=== PATIENT | male | born 1955 | race Caucasian/White ===

== ENCOUNTER 2018-10-25 19:13 | Observation (INO) | payer MEDICARE, BC ==
[2018-10-25 19:50] LABS: ABS Basophils 0.1 10^3/ul (0-0.2); ABS Eosinophils 0.4 10^3/ul (0-0.6); ABS Lymphocytes 2.2 10^3/ul (1.0-4.8); ABS Neutrophils 4.9 10^3/ul (1.5-7.7); Eosinophil % 4.2 %; Hematocrit 43 % (42-52); Hemoglobin 14.8 g/dL (14.0-18.0); Lymphocyte % 25.8 %; Mean Corpuscular HGB Conc 35 g/dL (31-36); Mean Corpuscular Hemoglobin 30 pg (27-31); Mean Corpuscular Volume 87 fL (80-94); Mean Platelet Volume 7.7 fL (7.4-10.4); Nucleated Red Blood Cells % 0.1; Platelet Count 202 10^3/uL (150-450); Red Blood Count 4.95 10^6 /uL (4.18-5.48); Red Cell Distribution Width 14 % (10-15); White Blood Count 8.5 10^3/uL (3.5-10.8)
[2018-10-25 19:57] LABS: INR 0.97 (0.82-1.09)
[2018-10-25 20:11] LABS: Albumin 4.4 g/dL (3.2-5.2); Albumin/Globulin Ratio 1.5 (1-3); BUN/Creatinine Ratio 15.9 (8-20); Calcium 9.9 mg/dL (8.6-10.3); EGFR African American 65.9 (>60); EGFR Non-African American 54.4 (>60); Globulin 2.9 g/dL (2-4); Potassium 4.1 mmol/L (3.5-5.0); Total Bilirubin 0.5 mg/dL (0.2-1.0); Total Protein 7.3 g/dL (6.4-8.9)
--- NOTE | 2018-10-25 21:13 | ED ---
HPI Chest Pain - HPI Summary HPI Summary: A 63 y/o male presents to [facility] with a chief complaint of intermittent chest pain since 09:00 this morning. He denies any N/V. At triage he rated his pain as a 2/10 in severity. He also reports SOB and leg pain. He says that every now and then his CP would pop up again, and now he reports a dull burn. He states that sometimes his CP can radiate to his throat. He says that he has had several stents and triple bypass. His last stent was done here in [address] 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 - History of Current Complaint Chief Complaint: EDChestPainROMI Time Seen by Provider: 10/25/18 20:10 Hx Obtained From: Patient Onset/Duration: Started Hours Ago, Still Present Timing: Constant Initial Severity: Mild Current Severity: Mild Pain Intensity: 2 Pain Scale Used: 0-10 Numeric Chest Pain Location: Diffuse Chest Pain Radiates: Yes Chest Pain Radiates To:: Other - throat Character: Burning, Dull/Aching Aggravating Factor(s): Nothing Alleviating Factor(s): Nothing Associated Signs and Symptoms: Positive: Shortness of Breath. Negative: Fever - Additional Pertinent History Primary Care Physician: SUGEY - Allergy/Home Medications Allergies/Adverse Reactions: Allergies Allergy/AdvReac Type Severity Reaction Status Date / Time atorvastatin [From Lipitor] Allergy Unknown Verified 10/25/18 19:24 Reaction Details fenofibrate [From Tricor] Allergy Unknown Verified 10/25/18 19:24 Reaction Details niacin Allergy Unknown Verified 10/25/18 19:24 Reaction Details PMH/Surg Hx/FS Hx/Imm Hx Endocrine/Hematology History: Denies: Hx Diabetes, Hx Thyroid Disease Cardiovascular History: Reports: Hx Angina, Hx Coronary Artery Disease, Hx Hypertension, Hx Myocardial Infarction, Other Cardiovascular Problems/Disorders - tripple bypass Denies: Hx Congestive Heart Failure, Hx Pacemaker/ICD Respiratory History: Reports: Hx Asthma, Hx Seasonal Allergies, Hx Sleep Apnea, Other Respiratory Problems/Disorders - "mild emphysema" Denies: Hx Chronic Obstructive Pulmonary Disease (COPD) GI History: Denies: Hx Ulcer History: Denies: Hx Renal Disease Musculoskeletal History: Reports: Hx Arthritis, Hx Back Problems, Hx Tendonitis - SHOULDERS, ELBOWS, HAD HAD SURGERY, Other Musculoskeletal History - Chronic Pain Syndrome Sensory History: Reports: Hx Contacts or Glasses - READING Denies: Hx Hearing Aid Opthamlomology History: Reports: Hx Contacts or Glasses - READING Psychiatric History: Denies: Hx Panic Disorder - Surgical History Surgery Procedure, Year, and Place: Status Post Coronary Artery Bypass Graft 2004; Bilateral Shoulder Surgery; Left Rotator Cuff Repair; Abdominal Hernia Repair; Right Knee MENISCUS Surgery; Lt WRIST& HAND - CARPAL TUNNEL & FINGER LOCKING, Left Elbow, TRIPLE BYPASS WITH 6 STENTS-2015. ANGIOPLASTY BILATERAL LEGS Hx Anesthesia Reactions: No Infectious Disease History: No Infectious Disease History: Denies: Hx Hepatitis, Hx Human Immunodeficiency Virus (HIV), History Other Infectious Disease, Traveled Outside the [place] in Last 30 Days - Family History Known Family History: Positive: Unknown - Social History Alcohol Use: Rare Substance Use Type: Reports: None Smoking Status (MU): Former Smoker Type: Cigarettes Have You Smoked in the Last Year: No Review of Systems Negative: Fever Positive: Chest Pain All Other Systems Reviewed And Are Negative: Yes Physical Exam - Summary Physical Exam Summary: Appearance: The patient is well-nourished in no acute distress and in no acute pain. Skin: The skin is warm and dry and skin color reflects adequate perfusion. HEENT: The head is normocephalic and atraumatic. The pupils are equal and reactive. The conjunctivae are clear and without drainage. Nares are patent and without drainage. Mouth reveals moist mucous membranes and the throat is without erythema and exudate. The external ears are intact. The ear canals are patent and without drainage. The tympanic membranes are intact. Neck: The neck is supple with full range of motion and non-tender. There are no carotid bruits. There is no neck vein distension. Respiratory: Chest is non-tender. Lungs are clear to auscultation and breath sounds are symmetrical and equal. Cardiovascular: Heart is regular rate and rhythm. There is no murmur or rub auscultated. There is no peripheral edema and pulses are symmetrical and equal. Abdomen: The abdomen is soft and non-tender. There are normal bowel sounds heard in all four quadrants and there is no organomegaly palpated. Musculoskeletal: There is no back tenderness noted. Extremities are non-tender with full range of motion. There is good capillary refill. There is no peripheral edema or calf tenderness elicited. Neurological: Patient is alert and oriented to person, place and time. The patient has symmetrical motor strength in all four extremities. Cranial nerves are grossly intact. Deep tendon reflexes are symmetrical and equal in all four extremities. Psychiatric: The patient has an appropriate affect and does not exhibit any anxiety or depression. Triage Information Reviewed: Yes Vital Signs On Initial Exam: Initial Vitals Temp Pulse Resp BP Pulse Ox 98.3 F 92 16 142/83 99 10/25/18 19:15 10/25/18 19:15 10/25/18 19:15 10/25/18 19:15 10/25/18 19:15 Vital Signs Reviewed: Yes Diagnostics - Vital Signs Vital Signs Temp Pulse Resp BP Pulse Ox 10/25/18 20:05 90 22 111/88 98 10/25/18 19:15 98.3 F 92 16 142/83 99 - Laboratory Lab Results: Lab Results 10/25/18 10/25/18 10/25/18 Range/Units 19:41 19:41 19:41 WBC 8.5 (3.5-10.8) 10^3/uL RBC 4.95 (4.18-5.48) 10^6 /uL Hgb 14.8 (14.0-18.0) g/dL Hct 43 (42-52) % MCV 87 (80-94) fL MCH 30 (27-31) pg MCHC 35 (31-36) g/dL RDW 14 (10-15) % Plt Count 202 (150-450) 10^3/uL MPV 7.7 (7.4-10.4) fL Neut % (Auto) 57.3 % Lymph % (Auto) 25.8 % Levy % (Auto) 11.3 % Eos % (Auto) 4.2 % Baso % (Auto) 1.4 % Absolute Neuts (auto) 4.9 (1.5-7.7) 10^3/ul Absolute Lymphs (auto) 2.2 (1.0-4.8) 10^3/ul Absolute Monos (auto) 1.0 H (0-0.8) 10^3/ul Absolute Eos (auto) 0.4 (0-0.6) 10^3/ul Absolute Basos (auto) 0.1 (0-0.2) 10^3/ul Absolute Nucleated RBC 0.0 10^3/ul Nucleated RBC % 0.1 INR (Anticoag Therapy) 0.97 (0.82-1.09) Sodium 139 (135-145) mmol/L Potassium 4.1 (3.5-5.0) mmol/L Chloride 106 (101-111) mmol/L Carbon Dioxide 26 (22-32) mmol/L Anion Gap 7 (2-11) mmol/L BUN 21 (6-24) mg/dL Creatinine 1.32 H (0.67-1.17) mg/dL Est GFR ( Amer) 65.9 (>60) Est GFR (Non-Af Amer) 54.4 (>60) BUN/Creatinine Ratio 15.9 (8-20) Glucose 93 (70-100) mg/dL Calcium 9.9 (8.6-10.3) mg/dL Total Bilirubin 0.50 (0.2-1.0) mg/dL AST 30 (13-39) U/L ALT 36 (7-52) U/L Alkaline Phosphatase 62 (34-104) U/L Troponin I 0.00 (<0.04) ng/mL Total Protein 7.3 (6.4-8.9) g/dL Albumin 4.4 (3.2-5.2) g/dL Globulin 2.9 (2-4) g/dL Albumin/Globulin Ratio 1.5 (1-3) Result Diagrams: 10/25/18 19:41 10/25/18 19:41 Lab Statement: Any lab studies that have been ordered have been reviewed, and results considered in the medical decision making process. Chest Pain Course/Dx - Course Course Of Treatment: I'm concerned with Mr. Betancourt's story of chest pain. His initial EKG, chest x-ray and labs are negative however he reports that this is the same pain that he's had several times in the past for which he received cardiac stenting. I spoke with Dr. Morejon about observation in the hospital. - Diagnoses Provider Diagnoses: Chest pain - Provider Notifications Discussed Care Of Patient With: Demetra Morejon Time Discussed With Above Provider: 21:49 Instructed by Provider To: Admit As Inpatient Discharge - Sign-Out/Discharge Documenting (check all that apply): Patient Departure - admit Patient Received Moderate/Deep Sedation with Procedure: No - Discharge Plan Condition: Fair Disposition: ADMITTED TO [facility] Referrals: Orion Serna MD [Primary Care Provider] - - Billing Disposition and Condition Condition: FAIR Disposition: Admitted to [facility] - Attestation Statements Document Initiated by Sofie: Yes Documenting Scribe: Cristobal Hernandez Provider For Whom Sofie is Documenting (Include Credential): Dain Hodges MD Scribelicia Attestation: ICristobal, scribed for Dain Hodges MD on 10/25/18 at 2209. Scribe Documentation Reviewed: Yes Provider Attestation: The documentation as recorded by the Cristobal powers accurately reflects the service I personally performed and the decisions made by me, Dain Hodges MD Status of Scribe Document: Viewed
[2018-10-26] MEDS ORDERED: Albuterol HFA INHALER* 8 gm MDI INH PRN (00:10)
[2018-10-26] MEDS ORDERED: oxyCODONE TAB* 5 MG TAB PO PRN (00:10)
[2018-10-26] MEDS ORDERED: Al Hydrox/Mg Hydrox/Simet LIQ* 30 ML UDC PO PRN (00:14)
[2018-10-26] MEDS ORDERED: NS 0.9% 1000 ML** 1,000 ML IV SCH ×2 (00:15→12:45)
[2018-10-26] MEDS ORDERED: ALPRAZolam TAB* 0.5 MG PO PRN (00:19)
[2018-10-26] MEDS: Zolpidem TAB* 10 MG PO PRN ×2 (01:41→21:19)
--- NOTE | 2018-10-26 03:05 | HP ---
CC: Dr. Serna * HISTORY AND PHYSICAL: DATE OF ADMISSION: 10/26/18 PRIMARY CARE PROVIDER: Dr. Serna. CHIEF COMPLAINT: Chest pain. HISTORY OF PRESENT ILLNESS: Mr. Betancourt is a 63-year-old male who has a history of coronary artery disease and is status post 3-vessel CABG in 2002, followed by history of cardiac stenting several times, who presents to the emergency room with complaints of chest pain. The patient states he was out working in the [employer] at approximately 9:00 a.m. when he began to develop a severe burning and cramp-like pain in his left side of his chest. He had some mild burning within his throat. He states he felt sweaty; however, it was hot out this morning, he was working in long pants. He states he went home, he showered, and he rested and the pain improved, but did not go away completely. The pain seem to wax and wane all day and at approximately 6:00 p.m., the pain was again severe and therefore he presented to the emergency room for evaluation. The patient also notes that he had some aching in his legs this morning. He does state that this discomfort in his chest is similar to what he has experienced in the past. He is due to see Dr. Mosher in approximately 2 weeks for his routine followups. His last stress test was in 2014 and at that time, he had a stenting for the abnormal stress test. PAST MEDICAL HISTORY: 1. Coronary artery disease. 2. Hypertension. 3. Hyperlipidemia. 4. Psoriasis. 5. Asthma. 6. Degenerative disc disease. 7. Anxiety. PAST SURGICAL HISTORY: 1. Umbilical hernia repair. 2. Left rotator cuff surgery. 3. Right knee surgery x3. 4. Left elbow surgery. 5. Right rotator cuff x2. 6. Left carpal tunnel. 7. CABG. MEDICATIONS: 1. Praluent 75 mg subcutaneous q.2 weeks. 2. Albuterol 2 puffs inhaled q.i.d. p.r.n. shortness of breath. 3. Xanax 1 mg p.o. daily p.r.n. anxiety. 4. Nitroglycerin 0.3 mg subcu 5 minutes p.r.n. chest pain. 5. Singulair 10 mg p.o. q.h.s. 6. Metoprolol-XL 12.5 mg p.o. every other day. 7. Lisinopril 10 mg p.o. daily. 8. Plavix 75 mg p.o. daily. 9. Vitamin D3 2000 units p.o. daily. 10. Aspirin 81 mg p.o. daily. 11. OxyContin 10 mg p.o. b.i.d. 12. Ambien 10 mg p.o. q.h.s. p.r.n. insomnia. 13. Incruse Ellipta one puff inhaled daily. 14. Stelara 45 mg subcutaneous q.3 months. 15. Sildenafil 25 mg p.o. daily p.r.n. ED. 16. Zoloft 100 mg p.o. daily. 17. Potassium chloride 20 mEq p.o. q.h.s. 18. Oxycodone IR 5 mg p.o. t.i.d. p.r.n. pain. ALLERGIES: LIPITOR, NIACIN, and FENOFIBRATE. FAMILY HISTORY: Mom at the age of 93, she had lymphoma and breast cancer, dad at the age of 60 of [place], brother of an [place] at the age of 55. The patient has also had several paternal uncles dying of MIs. SOCIAL HISTORY: The patient is a former smoker. He quit in 2002. He smoked 2 to 3 packs per day x30 years. He drinks alcohol on occasion. 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 He is , he has 2 children. His is his healthcare proxy. REVIEW OF SYSTEMS: A complete 11-system review of systems is obtained. Pertinent positives and negatives are as per HPI and otherwise negative. PHYSICAL EXAMINATION GENERAL: The patient is a well-developed middle-aged male, seen sitting up in the stretcher, in no acute distress. VITAL SIGNS: Blood pressure 166/98, pulse 84, respirations 11, temp 98.3, O2 sat 96% on room air. HEENT: Pupils are equal and round. Extraocular muscles are intact. Oropharynx is clear. Oral mucosa is moist. The patient wears upper and lower dentures. NECK: There is no submandibular, cervical, or supraclavicular adenopathy. Thyroid is not enlarged. No thyroid nodules noted. PULMONARY: Lungs are clear to auscultation bilaterally. CARDIAC: Normal S1, S2. Regular rate and rhythm. I do not appreciate any murmurs. ABDOMEN: Bowel sounds are present. Abdomen is soft, nontender, and nondistended. MUSCULOSKELETAL: There is no cyanosis or clubbing of the digits. There is full active range of motion of all 4 extremities. SKIN: Warm and dry. There are no rashes. NEUROLOGIC: Cranial nerves II through XII are grossly intact. Sensation is intact to light touch throughout. Strength is 5/5 and symmetric to both upper and lower extremities bilaterally. PSYCHIATRIC: The patient is alert. He is oriented x3. Affect appears appropriate. DIAGNOSTIC STUDIES/LAB DATA: WBC 8.5, hemoglobin 14.8, hematocrit 43, platelets 202. INR is 0.97. Sodium 139, potassium 4.1, chloride 106, CO2 of 26 , BUN 21, creatinine 1.32, glucose 93, calcium 9.9. Bilirubin 0.5, AST 30, ALT 36, alk phos 62. Troponin 0.0, followed by 0.01. Albumin is 4.4. EKG reveals normal sinus rhythm with possible slight ST depression and T-wave inversions in the anterior leads. This is a slight change from EKG obtained in 2014. Chest x-ray to my interpretation reveals clear lung hackett bilaterally. ASSESSMENT AND PLAN: Mr. Betancourt is a 63-year-old male who has an extensive cardiac history and that he has had bypass surgery in 2002 followed by subsequent cardiac stenting, who presents to the emergency room with complaints of burning and cramp like left-sided chest pain. 1. Chest pain: At this point, given the patient's significant risk factors, the patient will be admitted under observation status to undergo stress testing. He will have 1 more troponin obtained at 0400. Given his pain has been essentially present all day long, I do not think that the pain he is experiencing currently given his atypical nature and that it is significantly burning and his troponin is negative, is representing an acute coronary syndrome. The patient will have an exercise nuclear stress test ordered for in the morning. The patient will continue on Plavix 75 mg p.o. daily, metoprolol- XL and lisinopril as well as aspirin 81 mg daily. 2. Elevated creatinine: The patient's creatinine is mildly elevated above his baseline. However, the last creatinine in our system is from March 2018. I am going to give the patient normal saline at 75 mL per hour and repeat a basic metabolic panel at 0400. 3. Hypertension: BP is moderately elevated at this time, but it is unclear if he has taken his medications as prescribed. We will monitor overnight and tomorrow the medication regimen can be adjusted if necessary. 4. Hyperlipidemia: The patient takes Praluent at home. This will be on hold for his hospitalization. 5. Asthma: Continue p.r.n. albuterol. 6. Anxiety: Continue Zoloft and p.r.n. Xanax. 7. Chronic back pain: Continue OxyContin and p.r.n. oxycodone. 8. DVT prophylaxis: According to the Adult Thrombosis Prophylaxis Risk Factor Assessment Guide, the patient has a total risk factor score of 3, making him high risk. Lovenox 40 mg subcutaneous daily will be utilized starting on the evening of 10/26/18 if he is still here. 9. Code status is full. TIME SPENT: Forty five minutes was spent admitting this patient. [id number]/CPS #: [id number] KEL
[2018-10-26 04:36] LABS: BUN/Creatinine Ratio 21.7 (8-20); Calcium 9.3 mg/dL (8.6-10.3); EGFR African American 84.8 (>60); EGFR Non-African American 70.1 (>60); Potassium 3.8 mmol/L (3.5-5.0)
[2018-10-26 04:39] LABS: Troponin I 0.01 ng/mL (<0.04)
[2018-10-26] MEDS: NFT: Umeclidinium 62.5 MDI(NF) MDI INH SCH (07:34)
[2018-10-26] MEDS ORDERED: Metoprolol Succinate XL TAB* 25 MG PO SCH (09:00)
[2018-10-26] MEDS ORDERED: Aminophylline IV* 25 MG/ML 10 ML VIAL ONE (09:01)
[2018-10-26] MEDS ORDERED: Regadenoson* 0.4 MG/5 ML SYRINGE ONE (09:01)
[2018-10-26] MEDS ORDERED: Nitroglycerin TAB 0.4 MG* 0.4 MG TAB ONE (09:23)
[2018-10-26] MEDS ORDERED: Diazepam TAB(*) 5 MG PO PRN (10:12)
[2018-10-26] MEDS ORDERED: diPHENhydraMINE PO* 25 MG PO PRN (10:12)
[2018-10-26] MEDS ORDERED: Heparin DRIP 25,000 UNITS(*) 25,000 UNITS/500 ML BAG IV SCH (10:30)
[2018-10-26] MEDS: Lisinopril TAB* 10 MG PO SCH (10:58)
[2018-10-26] MEDS: oxyCODONE SR TAB(*) 10 MG TAB.SR PO SCH ×2 (10:58→21:19)
[2018-10-26] MEDS: Sertraline* 100 MG TAB PO SCH (10:59)
[2018-10-26] MEDS: Aspirin EC TAB* 81 MG TAB.EC PO SCH (10:59)
[2018-10-26] MEDS: Clopidogrel TAB* 75 MG PO SCH (10:59)
[2018-10-26] MEDS ORDERED: Heparin VIAL(*) 5000 UNITS/ML VIAL (FIVE THOUSAND) IV SCH (11:00)
[2018-10-26 11:18] LABS: EGFR African American 84.8 (>60); EGFR Non-African American 70.1 (>60); HDL Cholesterol 35.4 mg/dL
[2018-10-26] MEDS ORDERED: Heparin 2 UNITS/ML IVPREMIX* 2,000 UNIT/1,000 ML BAG IV ONE ×2 (11:20→12:06)
[2018-10-26] MEDS ORDERED: Lidocaine 1% INJ* 10 MG/ML 30 ML SDV ONE (11:20)
[2018-10-26] MEDS ORDERED: Iohexol 350 (CONTRAST) 200 ML MDV IV ONE ×2 (11:21→12:18)
[2018-10-26] MEDS ORDERED: nitroGLYCERIN DRIP* 25,000 MCG/250 ML BTL ONE (11:24)
[2018-10-26] MEDS ORDERED: fentaNYL* 50 MCG/ML 2 ML VIAL (100 MCG VIAL) ONE (11:24)
[2018-10-26] MEDS ORDERED: Midazolam* 1 MG/ML 5 ML VIAL (5 MG) ONE (11:24)
[2018-10-26] MEDS ORDERED: VERAPAMIL 2.5 MG/ML 2 ML VIAL ** 5 mg/2 ml ONE (11:24)
[2018-10-26] MEDS ORDERED: Heparin(*) 1000 UNIT/ML 10 ML VIAL CATH LAB IV ONE (11:24)
[2018-10-26 11:53] LABS: ABS Basophils 0.1 10^3/ul (0-0.2); ABS Eosinophils 0.3 10^3/ul (0-0.6); ABS Lymphocytes 1.5 10^3/ul (1.0-4.8); ABS Monocytes 0.8 10^3/ul (0-0.8); ABS Neutrophils 5.4 10^3/ul (1.5-7.7); Eosinophil % 3.9 %; Hematocrit 42 % (42-52); Hemoglobin 14.8 g/dL (14.0-18.0); Lymphocyte % 19.1 %; Mean Corpuscular HGB Conc 35 g/dL (31-36); Mean Corpuscular Hemoglobin 31 pg (27-31); Mean Corpuscular Volume 87 fL (80-94); Mean Platelet Volume 8.4 fL (7.4-10.4); Platelet Count 200 10^3/uL (150-450); Red Blood Count 4.86 10^6 /uL (4.18-5.48); Red Cell Distribution Width 13 % (10-15); White Blood Count 8.1 10^3/uL (3.5-10.8)
[2018-10-26] MEDS ORDERED: Bivalirudin(*) 250 MG VIAL ONE (12:03)
[2018-10-26] MEDS ORDERED: Clopidogrel TAB* 75 MG ONE (12:07)
--- NOTE | 2018-10-26 12:09 | CONS ---
CONSULTATION REPORT: DATE OF CONSULT: 10/26/18 ATTENDING PHYSICIAN: Dr. Cristobal Edwards, Interventional Cardiology.* (DICTATED BY YESSENIA MORENO NP) REASON FOR CONSULT: Abnormal exercise nuclear stress test with complaint of anginal equivalent. PRIMARY TELEVISION CAMERA OPERATOR: Dr. Jesus Mosher. HISTORY OF PRESENT ILLNESS: This is a pleasant 63-year-old gentleman with a notable history of coronary artery disease with prior remote bypass in 2002. Per report, SVG to right coronary, SVG to OM1 and OM2. He also has a history of extensive peripheral arterial disease, followed by Dr. Espitia; hypertension; hyperlipidemia. The patient states he has been in his usual state of health up until about a month ago when he started to notice decreased exercise capacity. He has also been noticing worsening dyspnea on exertion. Apparently, 2 to 3 days ago he started to develop his anginal equivalent which is burning chest pain radiating into his jaw. 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 Later that evening after having sexual intercourse with his , he started to redevelop substernal burning chest pain radiating into his neck and jaw with associated shortness of breath. Episode improved with nitroglycerin therapy. The patient presented to the emergency room yesterday, 10/25/17, due to chest pain with dyspnea on exertion and leg pain. He states that he was given nitroglycerin in the emergency department that resolved the pain. He was admitted to [address] [place] [address]. Cardiac enzymes were cycled and have remained normal. He was risk stratified with an exercise nuclear stress test. I spoke to Dr. Cristobal Edwards who conducted exercise stress ECG portion, who states that the patient had reproduction of anginal equivalent that improved with administration of sublingual nitroglycerin with anterolateral ischemic ECG changes. Preliminary myocardial perfusion imaging was reviewed by Cristobal Edwards and it suggested of inferior ischemia. I personally saw the patient while on the nuclear table in Nuclear Medicine. He is stable at this time and offers no other complaints. He states he is compliant with medications and is planning on having his shoulder operated on in the coming weeks at [facility]. Last echocardiogram, according to our outpatient medical records, was in 2010 via stress echo. Last ischemic evaluation was via cardiac catheterization in 2014 that resulted in drug-eluting stent placement to saphenous vein graft to the left circumflex and drug-eluting stent to LAD. PAST MEDICAL HISTORY: Notable for: 1. Coronary artery disease. 2. Prior [place]. 3. Hyperlipidemia. 4. Hypertension. 5. Peripheral arterial disease. PAST SURGICAL HISTORY: Includes: 1. CABG x3 in 2002 as mentioned above. 2. PTCA, atherectomy to right SFA, right popliteal. Prior PTCA to left anterior tibialis. 3. Hernia repair. 4. Rotator cuff surgery. 5. Prior percutaneous coronary interventions. ALLERGIES: Listed includes NIASPAN, TRICOR, and LIPITOR. The patient denies allergy to contrast dye, shellfish, or red dye. FAMILY HISTORY: Noncontributory. SOCIAL HISTORY: The patient is , lives at home with his . 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 Former tobacco user. He smoked 2 to 3 packs per day for 25 years. Drinks beer on occasion. Denies drug use. He lives a fairly active lifestyle. Hobbies include hunting and camping. REVIEW OF SYSTEMS: All systems have been reviewed and otherwise negative except as above mentioned in the HPI. PHYSICAL EXAM: Temperature 97.5, pulse 79, respirations 15, oxygenation 96% on room air, and blood pressure of 134/93. General: The patient was lying on nuclear bed, getting scanned when seen and examined. He appears in no apparent distress. He was resting comfortably. HEENT: Head is atraumatic, normocephalic. Oral mucosa is moist. Tongue is midline. Neck: Supple. Trachea midline. No JVD. No carotid bruits. Cardiac: Normal S1, S2. Regular rate and rhythm. No murmur, rub, or gallop noted. Lungs: Auscultated posteriorly. No evidence of adventitious breath sounds. Respirations nonlabored. /GI: Abdomen was distended, nontender. Normoactive bowel sounds , soft. No hepatomegaly noted. Peripheral vascular: No nonhealing ulcerations were noted. No clubbing, no cyanosis, no edema. The patient had strong bilateral dorsalis pedis pulses palpated bilaterally and symmetrically. Skin: Intact. No evidence of jaundice, rashes, or ecchymosis appreciated. DIAGNOSTIC STUDIES/LAB DATA: Blood work obtained, 10/25/18: White count 8.5, hemoglobin 14.8, hematocrit 43, platelets 202. INR was 0.97. Chemistry from 10/26/18: Sodium 138, potassium 3.8, chloride 107, carbon dioxide 23, BUN 23, creatinine 1.06. AST and ALT were normal. Troponin negative x3. ECG from 10/26/17 was reviewed. Sinus rhythm, rate 84 with new anterolateral T - wave changes appreciated with first-degree AV block, VT interval 259. Nuclear imaging: Final report is pending. Chest x-ray, 10/25/18: Per radiology report, no acute cardiopulmonary process was identified. ASSESSMENT AND PLAN: 1. Unstable angina. The patient has had no recurrent angina since percutaneous coronary intervention in 2014. He states for the last 3 to 4 weeks he has noticed a decrease in his exercise capacity with dyspnea on exertion and now reoccurrence of his anginal equivalent ( burning chest pain radiating into his jaw). The patient had reproduction of symptoms with ischemic ECG changes noted on exercise stress ECG portion. Preliminary nuclear imaging is suggestive of an inferior ischemia which was reviewed with Dr. Cristobal Edwards. At this time, we recommend continuing aspirin, Plavix, beta-joseph therapy. We will start IV heparin with ACS protocol bolus. Plan is for left heart catheterization. The patient has notable right lower extremity peripheral arterial disease, thus access will likely be right radial. Procedure was reviewed with the patient including risks and benefits not limited to bleeding, infection, vessel damage, risk of contrast induced nephropathy requiring dual-antiplatelet therapy. The patient was agreeable to the procedure. Procedural consent will be obtained by Dr. Cristobal Edwards. We will continue to follow. 2. History of coronary artery disease, on aspirin, Plavix, and beta-joseph therapy. He has a notable history of prior reactions to fenofibrate, atorvastatin, and niacin. We will do a trial of Zetia therapy. He should be evaluated for a PCSK9 inhibitor if intolerant on an outpatient basis. 3. History of hyperlipidemia. Goal LDL less than 70. Recommending updating lipid panel. Continue Praulent therapy. 4. History of hypertension. The patient is currently normotensive. Recommended continuing current medical therapy. 5. Disposition: Pending course. The patient is a full code. PLAN/RECOMMENDATIONS: Left heart catheterization. Consent to be obtained by Dr. Cristobal Edwards. I personally reviewed the above assessment and plan with Dr. Edwards. He has personally seen and examined the patient. YESSENIA MORENO NP I personally interviewed and examinec the patient , reviewing the risks and benefits of proceeding with cardiac catheterization and possible PCI. He understood this and wished to proceed. I agree with the above Assessmenr and plan, with further management pending the results of the catheterization. CC: Dr. Jesus Mosher MD,[facility] [id number]/CPS #: [id number] MTDD
[2018-10-26] MEDS ORDERED: Adenosine* 3 MG/ML VIAL ONE (12:11)
[2018-10-26] MEDS ORDERED: Nitroglycerin TAB 0.4 MG* 0.4 MG TAB SL PRN (12:33)
--- NOTE | 2018-10-26 14:45 | PN ---
Subjective Date of Service: 10/26/18 Interval History: Patient seen and examined, before stress test and again after cardiac cath and stenting. Patient is currently in ICU bed with at bedside. He is complaining of some intermittent substernal chest burning, but denies any SOB, no palpitations, no n/v. 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 Diphenhydramine HCl (Benadryl Po*) 25 mg PO ONCE PRN PRN Reason: call out clerk to Furniture Refinisher Heparin Sodium (Porcine) (Heparin Vial(*)) 0 units IV .PER PROTOCOL [facility] Last Admin: 10/26/18 10:51 Dose: 4,000 units Sodium Chloride (Ns 0.9% 1000 Ml) 1,000 mls @ 100 mls/hr IV PER RATE [facility] Stop: 10/26/18 22:44 Lisinopril (Prinivil Tab*) 10 mg PO DAILY [facility] Last Admin: 10/26/18 10:58 Dose: 10 mg Metoprolol Succinate (Toprol Xl Tab*) 12.5 mg PO EVERY OTHER DAY [facility] Last Admin: 10/26/18 10:58 Dose: 12.5 mg Montelukast Sodium (Singulair Tab*) 10 mg PO BEDTIME [facility] Nitroglycerin (Nitroglycerin Tab 0.4 Mg*) 0.4 mg SL Q5M PRN PRN Reason: ANGINA Oxycodone HCl (Oxycontin(*)) 10 mg PO BID [facility] Last Admin: 10/26/18 10:58 Dose: 10 mg Oxycodone HCl (Roxycodone Tab*) 5 mg PO TID PRN PRN Reason: pain-moderate Last Admin: 10/26/18 01:41 Dose: 5 mg Potassium Chloride (Klor Con Er Tab*) 20 meq PO QPM [facility] Sertraline HCl (Zoloft*) 100 mg PO DAILY [facility] Last Admin: 10/26/18 10:59 Dose: 100 mg Umeclidinium [place] (Incruse Ellipta Mdi (Nf)) 1 inh INH DAILY [facility] Last Admin: 10/26/18 07:34 Dose: Not Given Zolpidem Tartrate (Ambien Tab*) 10 mg PO BEDTIME PRN PRN Reason: SLEEP Last Admin: 10/26/18 01:41 Dose: 10 mg Vital Signs - 8 hr 10/26/18 10/26/18 10/26/18 07:38 08:00 10:58 Temperature 97.5 F Pulse Rate 81 Respiratory 16 18 18 Rate Blood Pressure 147/87 (mmHg) O2 Sat by Pulse 98 Oximetry 10/26/18 10/26/18 10/26/18 11:07 11:47 13:03 Temperature 97.5 F 98.0 F Pulse Rate 88 72 Respiratory 16 10 18 Rate Blood Pressure 123/81 130/83 (mmHg) O2 Sat by Pulse 98 100 Oximetry Oxygen Devices in Use Now: None Appearance: alert, NAD Eyes: No Scleral Icterus, PERRLA Ears/Nose/Mouth/Throat: NL Teeth, Lips, Gums, Mucous Membranes Moist Neck: NL Appearance and Movements; NL JVP, Trachea Midline Respiratory: Symmetrical Chest Expansion and Respiratory Effort, Clear to Auscultation Cardiovascular: NL Sounds; No Murmurs; No JVD, RRR, No Edema Abdominal: NL Sounds; No Tenderness; No Distention Extremities: No Edema, No Clubbing, Cyanosis, - - right radial cath site Skin: No Rash or Ulcers Neurological: Alert and Oriented x 3 Result Diagrams: 10/26/18 10:41 10/26/18 10:41 Additional Lab and Data: Lab Results 10/25/18 10/25/18 10/25/18 Range/Units 19:41 19:41 19:41 WBC 8.5 (3.5-10.8) 10^3/uL RBC 4.95 (4.18-5.48) 10^6 /uL Hgb 14.8 (14.0-18.0) g/dL Hct 43 (42-52) % MCV 87 (80-94) fL MCH 30 (27-31) pg MCHC 35 (31-36) g/dL RDW 14 (10-15) % Plt Count 202 (150-450) 10^3/uL MPV 7.7 (7.4-10.4) fL Neut % (Auto) 57.3 % Lymph % (Auto) 25.8 % [place] % (Auto) 11.3 % Eos % (Auto) 4.2 % Baso % (Auto) 1.4 % Absolute Neuts (auto) 4.9 (1.5-7.7) 10^3/ul Absolute Lymphs (auto) 2.2 (1.0-4.8) 10^3/ul Absolute Monos (auto) 1.0 H (0-0.8) 10^3/ul Absolute Eos (auto) 0.4 (0-0.6) 10^3/ul Absolute Basos (auto) 0.1 (0-0.2) 10^3/ul Absolute Nucleated RBC 0.0 10^3/ul Nucleated RBC % 0.1 INR (Anticoag Therapy) 0.97 (0.82-1.09) Sodium 139 (135-145) mmol/L Potassium 4.1 (3.5-5.0) mmol/L Chloride 106 (101-111) mmol/L Carbon Dioxide 26 (22-32) mmol/L Anion Gap 7 (2-11) mmol/L BUN 21 (6-24) mg/dL Creatinine 1.32 H (0.67-1.17) mg/dL Est GFR ( Amer) 65.9 (>60) Est GFR (Non-Af Amer) 54.4 (>60) BUN/Creatinine Ratio 15.9 (8-20) Glucose 93 (70-100) mg/dL Calcium 9.9 (8.6-10.3) mg/dL Total Bilirubin 0.50 (0.2-1.0) mg/dL AST 30 (13-39) U/L ALT 36 (7-52) U/L Alkaline Phosphatase 62 (34-104) U/L Troponin I 0.00 (<0.04) ng/mL Total Protein 7.3 (6.4-8.9) g/dL Albumin 4.4 (3.2-5.2) g/dL Globulin 2.9 (2-4) g/dL Albumin/Globulin Ratio 1.5 (1-3) Assess/Plan/Problems-Billing Assessment: This is a 63 year old male patient with hx of CAD/CABG, asthma, HTN, HLP that presented to the ED with complaints of left sided chest burning. - Patient Problems (1) ACS (acute coronary syndrome) Code(s): I24.9 - ACUTE ISCHEMIC HEART DISEASE, UNSPECIFIED SNOMED Code(s): 636395922 Comment: - Prior hx of CABG and stenting - Today, failed stress test and was taken to cathode ray tube assembler by Dr. Edwards, received stent to SVG - Continue optimization with asa, plavix and BB (2) Asthma Code(s): J45.909 - UNSPECIFIED ASTHMA, UNCOMPLICATED SNOMED Code(s): 019333943 Comment: - Albuterol PRN (3) DVT prophylaxis Code(s): KUI9495 - SNOMED Code(s): 765685904 Comment: - SCDs (4) HLD (hyperlipidemia) Code(s): E78.5 - HYPERLIPIDEMIA, UNSPECIFIED SNOMED Code(s): 75403293 Comment: - Zetia per cardiology (5) HTN (hypertension) Code(s): I10 - ESSENTIAL (PRIMARY) HYPERTENSION SNOMED Code(s): 04102663 Comment: - Continue BB, stable (6) Full code status Code(s): Z78.9 - OTHER SPECIFIED HEALTH STATUS SNOMED Code(s): 703947766 Status and Disposition: Inpatient/guarded.
[2018-10-26] MEDS ORDERED: Potassium Chlor TAB* 20 MEQ TAB.ER PO SCH (18:00)
[2018-10-26] MEDS ORDERED: Montelukast Sodium TAB* 10 MG PO SCH (21:00)
[2018-10-26] MEDS ORDERED: Enoxaparin(*) 40 MG/0.4 ML SYR SUBCUT SCH (21:00)
[2018-10-27 05:00] LABS: ABS Basophils 0.1 10^3/ul (0-0.2); ABS Eosinophils 0.5 10^3/ul (0-0.6); ABS Monocytes 0.8 10^3/ul (0-0.8); ABS Neutrophils 5.1 10^3/ul (1.5-7.7); Eosinophil % 5.6 %; Hematocrit 41 % (42-52); Hemoglobin 14.2 g/dL (14.0-18.0); Mean Corpuscular HGB Conc 35 g/dL (31-36); Mean Corpuscular Hemoglobin 30 pg (27-31); Mean Corpuscular Volume 87 fL (80-94); Nucleated Red Blood Cells % 0.2; Platelet Count 178 10^3/uL (150-450); Red Blood Count 4.72 10^6 /uL (4.18-5.48); Red Cell Distribution Width 13 % (10-15); White Blood Count 8.5 10^3/uL (3.5-10.8)
[2018-10-27 05:16] LABS: Albumin 3.8 g/dL (3.2-5.2); Albumin/Globulin Ratio 1.3 (1-3); EGFR African American 97.5 (>60); EGFR Non-African American 80.5 (>60); Total Bilirubin 0.8 mg/dL (0.2-1.0); Total Protein 6.8 g/dL (6.4-8.9)
[2018-10-27] MEDS: NFT: Umeclidinium 62.5 MDI(NF) MDI INH SCH (08:12)
[2018-10-27] MEDS: oxyCODONE SR TAB(*) 10 MG TAB.SR PO SCH (08:14)
[2018-10-27] MEDS: Lisinopril TAB* 10 MG PO SCH (08:14)
[2018-10-27] MEDS: Sertraline* 100 MG TAB PO SCH (08:14)
[2018-10-27] MEDS: Clopidogrel TAB* 75 MG PO SCH (08:14)
[2018-10-27] MEDS: Aspirin EC TAB* 81 MG TAB.EC PO SCH (08:14)
--- NOTE | 2018-10-27 10:13 | CATH ---
CC: Orion Serna MD; Dr. Jesus Mosher CARDIAC CATHETERIZATION INTERVENTIONAL REPORT: DATE OF PROCEDURE: 10/26/2018 INDICATION FOR THE PROCEDURE: The patient with accelerated angina pectoris, suggesting unstable angina occurring with minimal exertion with a history of coronary artery disease, status post vein graft bypass to obtuse marginal branch skipping to the left-sided posterior descending artery and vein graft to acute marginal branch with prior stenting in 2014 of the distal vein graft to the obtuse marginal branch skipping to the left-sided PDA and stenting of the mid left anterior descending artery, now with abnormal exercise nuclear stress test suggesting intermediate risk with nuclear images reported as normal; however, on careful review suggesting inferior wall ischemia. PROCEDURES: Coronary arteriography, vein graft arteriography to the acute marginal branch, vein graft arteriography to the obtuse marginal branch skipping to the left-sided posterior descending artery, primary stenting of the vein graft to the obtuse marginal branch and posterior descending artery utilizing a 4.0 x 16 mm long Synergy drug-eluting stent dilated to high pressures to obtain 4.2 mm. The patient was interviewed and examined on the floor of the hospital, where the risks and benefits were explained. He understood and wished to proceed. APPROACH UTILIZED: The right radial artery was assessed and found to be of appropriate size for an approach and as such, this was the technique utilized. PRECARDIAC CATHETERIZATION LABORATORY RESULTS: Hemoglobin and hematocrit of 14.8 and 43, platelet count of 202,000. BUN and creatinine of 23 and 1.06. Sodium 138, potassium 3.8, chloride 107, bicarb 23. INR 0.97. MEDICATIONS GIVEN DURING THE PROCEDURE: Included a radial artery cocktail without the heparin as the patient was already on an established heparin drip, which was recently started with bolus. The radial artery cocktail included 300 mcg of nitroglycerin, 3 mg verapamil; 1% lidocaine locally was utilized. Angiomax bolus and an Angiomax drip were utilized for a subtherapeutic ACT. Fentanyl and Versed were administered as well as additional Plavix 150 mg. Intracoronary adenosine was given in a preventative fashion for stenting of vein graft. EQUIPMENT UTILIZED: 1. Right radial artery sheath is a 6-Montenegrin glide slender. 2. Diagnostic coronary catheter was a TIG4 5-Montenegrin curve. There was also a 5 - Montenegrin multipurpose 1 catheter, which was utilized. The guide catheter utilized was a 6-Montenegrin AL1 with side holes catheter. The guidewire utilized was both a 190 length All Star and a 300 length All Star. Of note, an Emerge over the wire 1.5 mm x 12 mm long balloon was utilized as guidewire support in order to cross the lesion. 3. The stent utilized was a 4.0 x 16 mm long Synergy drug-eluting stent dilated to high pressures. 4. The diagnostic guidewires utilized included both a 260-length Jo curved guidewire and a Wholey wire guidewire. 5. The closure device utilized was a regular-sized Vasc Band by [employer]. DESCRIPTION OF PROCEDURE: The patient was brought to the warehouse laborer, where a formal time-out was performed. He was prepped and draped in the sterile fashion and under ultrasound guidance, the right radial artery was cannulated and a sheath was placed. Diagnostic coronary arteriography was performed, followed by the decision made to intervene in the vein graft to the obtuse marginal branch skipping to the posterior descending artery. The patient's ACT was checked and found to be subtherapeutic, and as such, an Angiomax bolus and Angiomax drip was started. With the help of the [id number] balloon catheter , the interventional guidewire across the lesion was placed in the distal circumflex artery. Following this, primary stenting was performed utilizing the 4.0 x 16 mm long Synergy drug-eluting stent dilated to high pressure on deployment. Of note, adenosine was given both before and after intra vein graft to prevent slow flow. The result was assessed in multiple views and the wire was removed as well as the sheath, and hemostasis was also obtained with a Vasc Band. The radiation exposure included 17.5 minutes of fluoro time. The air kerma radiation was 3014 mGy. The DAP radiation was 19,145 microgray per m2. The total contrast used was 175 cc of Omnipaque dye. RESULTS: CORONARY ARTERIOGRAPHY: A. Left coronary artery: 1. Left main - widely patent. 2. Left anterior descending artery - the left anterior descending artery had mild luminal irregularities throughout the proximal and midportion. The prior stented area appeared to have minimal in-stent restenosis essentially without any significant lesion. The distal LAD toward the apical region had mild narrowing of 35% noted; it did wrap onto the inferior surface of the heart. A second diagonal branch had a proximal lesion of 55% to 60%. 3. Circumflex artery - essentially, a thread-like vessel at best with evidence of severe in-stent restenosis. No significant antegrade flow was seen in any meaningful way with flow minimally to a mid obtuse marginal branch and no further. VEIN GRAFT ARTERIOGRAPHY TO ACUTE MARGINAL BRANCH OF RIGHT CORONARY ARTERY: I- revealed a total occlusion at its proximal portion. VEIN GRAFT ARTERIOGRAPHY TO OBTUSE MARGINAL BRANCH SKIPPING TO LEFT SIDED PDA: - the prior area of stent placement in the distal portion revealed distal in -stent restenosis as well as probable new formation just past the end of the stented area with a critical 90% to 95% hazy lesion noted. Of note, I cannot see any significant flow in an obtuse marginal branch in an antegrade fashion from this vein graft. Of note, there is a high obtuse marginal branch that appears to get retrograde filling, but no antegrade filling. The anastomosis with the posterior descending artery shows [id number] narrowing of 40% to 45% in the proximal portion of the posterior descending artery after attachment , unchanged from prior study. INTERVENTION INTO VEIN GRAFT TO OBTUSE MARGINAL BRANCH SKIPPING TO LEFT-SIDED POSTERIOR DESCENDING ARTERY: Successful reduction of critical 90% to 95% stenosis with primary stenting utilizing a 4.0 x 16 mm long Synergy drug-eluting stent with residual stenosis of less than 5% ASHWINI-3 flow and no dissection seen. OVERALL ASSESSMENT: Significant stenosis seen within the vein graft as described above with successful intervention with drug-eluting stent. At this point in time, aggressive continued dual antiplatelet therapy, cholesterol management as well as other risk factor management will need to be pursued. This will be primarily carried out by the patient's primary cereal supervisor, Dr. Jesus Mosher. The patient will be seen for wound check within the next week to two weeks followed by followup appointment with Dr. Mosher. [id number]/[facility] #: [id number] [facility]
[2018-10-27 13:36] VITALS: BP 160/93
--- NOTE | 2018-10-27 17:50 | DS ---
CC: Dr. Orion Serna; Dr. Cristobal Edwards; Dr. Sabina Herring * DISCHARGE SUMMARY: DATE OF ADMISSION: 10/26/18 DATE OF DISCHARGE: 10/27/18 PRIMARY CARE PROVIDER: Dr. Orion Serna. ATTENDING PHYSICIAN: Dr. Shea Murphy * (dictated by Rebeca Hernandez NP). PRIMARY DIAGNOSES: 1. Acute coronary syndrome, status post drug-eluting stent placement. 2. Acute kidney injury. SECONDARY DIAGNOSES: 1. Asthma. 2. Hyperlipidemia. 3. Hypertension. STUDIES WHILE IN THE HOSPITAL: 1. EKG on 10/25/18 shows normal sinus rhythm with a rate of 88, QTc 605, inverted T-waves in V1 through V3. 2. Chest x-ray on 10/25/18 reads as: No acute cardiopulmonary disease. 3. Nuclear cardiac stress test on 10/26/18 reads as: Septal dyskinesia. No definite fixed or reversible perfusion defect. Assessment is low risk. 4. EKG on 10/26/18 shows normal sinus rhythm with a rate of 84, QTc 499, first - degree AV block, inverted T-waves in V1 through V3. 5. EKG on 10/26/18 shows normal sinus rhythm with a rate of 71, QTc 454, first - degree AV block, inverted T-waves in V1 through V3. 6. EKG on 10/27/18 shows normal sinus rhythm with a rate of 78, QTc 494, first - degree AV block, inverted T-waves in V1. PROCEDURES WHILE IN THE HOSPITAL: Cardiac catheterization on 10/26/[address] Edwards. HISTORY OF PRESENT ILLNESS AND HOSPITAL COURSE: Mr. Betancourt is a 63-year-old male with past medical history of coronary artery disease, status post CABG; hypertension, and hyperlipidemia, who presented to the emergency room on with complaints of chest pain. Please see the history and physical by Dr. Morejon for a complete summary of the events leading up to this hospitalization. In short, the patient was outside working when he began to develop a burning and cramping pain in the left side of his chest. The pain improved with rest, though did not resolve completely and was present throughout the day prompting him to ultimately present to the emergency room. In the emergency room, he had normal vitals. Lab work was unremarkable except for a mildly elevated creatinine. Troponin was 0.00. Because of the patient's cardiac history and his concerning chest pain, he was admitted by the hospitalist service. The patient underwent a stress test on 10/26/18 with results noted above. He was seen by Denisha Cameron NP, from Cardiology on 10/26/18 and at that point, there was concern for inferior ischemia on the preliminary nuclear stress test imaging. The plan was made for the patient to undergo a cardiac catheterization. The patient was prepped for the procedure and underwent a cardiac catheterization with Dr. Edwards on 10/26/18. At that point, the patient was noted to have a critical 90% to 95% lesion in an acute marginal branch skipping to the posterior descending artery in an area of previous stenting. A drug-eluting stent was placed and the patient was sent to ICU for recovery. The patient had an uneventful night and recovered well from the procedure. There were no complications related to the catheterization. As of this morning, the patient reports feeling well. He has not had any further chest pain or anginal equivalent. He is anxious to return home. His right radial access site is clean, dry and intact. On exam, he has no focal neurological deficits. His heart has a regular rate and rhythm without murmurs , rubs, or gallops. His lungs are clear to auscultation without rhonchi, wheezes, or rubs. Physical assessment is otherwise benign. The patient was seen this morning by Dr. Edwards, who advised that if the patient continued to feel well this afternoon and was able to ambulate in the hallways that he was stable for discharge from his perspective, though the patient will need to remain on dual-antiplatelet therapy and this was addressed to the patient. Mr. Betancourt is stable for discharge today. Vital signs are as follows: Temp 98.6, heart rate 75, respiratory rate 16, oxygen saturation 96% on room air, blood pressure 160/93. DISCHARGE MEDICATIONS: New medications: Zetia . Continued medications: 1. Albuterol MDI 2 puffs q.i.d. p.r.n. shortness of breath. 2. Aspirin 81 mg p.o. daily. 3. Plavix 75 mg p.o. daily. 4. Lisinopril 10 mg p.o. daily. 5. Metoprolol succinate 12.5 mg p.o. every other day. 6. Singulair 10 mg p.o. at bedtime. 7. OxyContin 10 mg p.o. b.i.d. 8. Oxycodone 5 mg p.o. t.i.d. p.r.n. pain. 9. Potassium chloride 20 mEq p.o. daily. 10. Sertraline 100 mg p.o. daily. 11. Incruse Ellipta 62.5 mcg inhalations daily. 12. Ambien 10 mg p.o. at bedtime p.r.n. insomnia. 13. Alirocumab 1 mL subcu every 2 weeks. 14. Alprazolam 1 mg p.o. daily p.r.n. anxiety. 15. Cholecalciferol 2000 units p.o. daily. 16. Nitroglycerin 0.3 mg sublingual q.5 minutes p.r.n. angina. 17. Stelara 45 mg every 3 months. Discontinued medications: 1. Sildenafil. DISCHARGE PLAN: Mr. Betancourt will be discharged home. Active will be as tolerated. Diet will be heart healthy. Medications are noted above. I will note that the patient had been prescribed sildenafil and nitroglycerin previously, though the patient should not take these medications concurrently and so at this point I would recommend that he no longer take the sildenafil unless otherwise instructed by his laundromat manager. He can continue his other usual medications as noted above. He will need to follow up with Cardiology. He has been advised to call the office on Monday morning to set up a wound check appointment with Dr. Herring. It has been stressed to him that the patient not stop or miss any doses of aspirin or Plavix due to the new stent that was placed. He will additionally need to follow up with his PCP in the next 4 to 7 days and will need to follow up with his laundromat manager after seeing Dr. Herring. The patient has been advised to return to the emergency room or nearest hospital for any worsening of symptoms, shortness of breath, lightheadedness, dizziness, chest discomfort, high fevers, chills, night sweats , loss of consciousness or any other worrisome signs or symptoms. DISCHARGE CONDITION: Stable. DISCHARGE DISPOSITION: Home. This is a summarized report of a complex medical history and hospital stay. For further details, please see the entire medical record. TIME SPENT: Approximately 50 minutes was spent on this discharge. REBECA HERNANDEZ, HEAD FILTER TANK TENDER HELPER [id number]/[facility] #: [id number] [facility] SERVICES[facility]am[facility]iel
== END 2018-10-27 13:30 | disposition home or self-care (01) ==
LOC: ED 19:13 → MEDTELE 10-26 00:07 → ICU 10-26 12:33
PROVIDERS: ADMIT Hospitalist; ATTEND Internal Medicine
DX: I24.9 Acute ischemic heart disease, unspecified (principal); N17.9 Acute kidney failure, unspecified; R07.9 Chest pain, unspecified; J45.909 Unspecified asthma, uncomplicated; E78.5 Hyperlipidemia, unspecified; I10 Essential (primary) hypertension; L40.9 Psoriasis, unspecified; I25.119 Atherosclerotic heart disease of native coronary artery with unspecified angina pectoris; I25.2 Old myocardial infarction; F41.9 Anxiety disorder, unspecified; R94.4 Abnormal results of kidney function studies; I45.81 Long QT syndrome; Z79.899 Other long term (current) drug therapy; Z95.1 Presence of aortocoronary bypass graft; Z79.01 Long term (current) use of anticoagulants; Z79.02 Long term (current) use of antithrombotics/antiplatelets; Z88.8 Allergy status to other drugs, medicaments and biological substances; Z87.891 Personal history of nicotine dependence; R06.02 Shortness of breath
CPT/HCPCS: 36415; 71045; 78452; 80048; 80053; 80061; 82565; 84484; 84520; 85025; 85347; 85610; 85730; 87641; 93005; 93017; 93455; 96374; 99156; 99157; 99283; A9270-GY; A9502; C1725; C1769; C1876; C9600-LC; G0378; J0153; J0280; J0583; J1644; J2250; J2785; J3010

== ENCOUNTER 2023-03-25 10:27 | Inpatient (IN) ==
[2023-03-25] MEDS ORDERED: Lactated Ringers 1000 ml BAG 1,000 ML IV ONE ×2 (11:09→11:44)
[2023-03-25] MEDS ORDERED: cefTRIAXone 1 gm/50 mL D5W 1 GM/50 ML BAG IV ONE (11:33)
[2023-03-25] MEDS ORDERED: Azithromycin 500 mg/250 ml NS 500 MG/250 ML BAG IVPB ONE (11:33)
[2023-03-25 11:40] LABS: ABS Basophils 0.2 10^3/uL (0.0-0.1); ABS Eosinophils 0.5 10^3/uL (0.0-0.5); ABS Lymphocytes 1.5 10^3/uL (1.0-4.8); ABS Monocytes 1.4 10^3/uL (0.0-1.1); ABS Neutrophils 16.6 10^3/uL (1.5-7.6); Eosinophil % 2.4 %; Hematocrit 39.6 % (38-53); Hemoglobin 13.5 g/dL (13.2-16.3); Lymphocyte % 7.4 %; Mean Corpuscular Hemoglobin 29.6 pg (27-33); Mean Corpuscular Volume 86.9 fL (80-97); Mean Platelet Volume 7.4 fL (7.5-11.2); Platelet Count 413 10^3/uL (150-450); Red Blood Count 4.56 10^6/uL (4.06-5.63); Red Cell Distribution Width 12.4 % (12-17); White Blood Count 20.2 10^3/uL (3.6-10.2)
[2023-03-25 11:58] LABS: Albumin 3.6 g/dL (3.2-5.2); C Reactive Protein 140.6 mg/L (<8.01); Creatinine, Serum 1.04 mg/dL (0.67-1.17); Globulin 3.6 g/dL (2-4); Potassium 3.8 mmol/L (3.5-5.0); Total Bilirubin 0.7 mg/dL (0.2-1.0); Total Protein 7.2 g/dL (6.4-8.9); eGFR CKD-EPI 77.2 (>60)
[2023-03-25] MEDS ORDERED: Albuterol HFA INHALER 8 gm MDI INH PRN (12:52)
[2023-03-25] MEDS ORDERED: Nitroglycerin 0.3 mg TAB SL PRN (12:52)
[2023-03-25] MEDS ORDERED: guaiFENesin 100 mg/5 ml LIQ unit dose cup PO PRN (12:54)
[2023-03-25] MEDS: Enoxaparin 40 MG/0.4 ML SYR SUBCUT SCH (15:11)
[2023-03-25] MEDS: DOXYcycline 100 MG in NS 0.9% 250 ml 250 ML IVPB SCH (15:13)
[2023-03-25] MEDS: Aspirin EC 81 mg TAB.EC (enteric coated) PO SCH (21:56)
[2023-03-26] MEDS: DOXYcycline 100 MG in NS 0.9% 250 ml 250 ML IVPB SCH ×2 (01:38→13:02)
[2023-03-26 06:59] LABS: ABS Basophils 0.1 10^3/uL (0.0-0.1); ABS Eosinophils 0.8 10^3/uL (0.0-0.5); ABS Lymphocytes 1.8 10^3/uL (1.0-4.8); ABS Monocytes 1.1 10^3/uL (0.0-1.1); ABS Neutrophils 10.2 10^3/uL (1.5-7.6); ABS Nucleated RBC 0.01 10^3/ul; Eosinophil % 5.6 %; Hematocrit 36.6 % (38-53); Hemoglobin 12.4 g/dL (13.2-16.3); Mean Corpuscular Hemoglobin 29.2 pg (27-33); Mean Corpuscular Hgb Conc 33.8 g/dL (31-36); Mean Corpuscular Volume 86.4 fL (80-97); Mean Platelet Volume 7.4 fL (7.5-11.2); Platelet Count 356 10^3/uL (150-450); Red Blood Count 4.24 10^6/uL (4.06-5.63); Red Cell Distribution Width 12.4 % (12-17)
[2023-03-26] MEDS: SPIRIVA Respimat (tiotropium) 2.5 mcg/inh Inhaler INH SCH (08:23)
[2023-03-26] MEDS: NF:ICOSAPENT ETHYL 1 GM CAPSULE (NF) PO SCH (09:47)
[2023-03-26] MEDS: Enoxaparin 40 MG/0.4 ML SYR SUBCUT SCH (13:05)
[2023-03-26] MEDS: cefTRIAXone 1 gm/50 mL D5W 1 GM/50 ML BAG IV SCH (14:55)
[2023-03-26] MEDS: Aspirin EC 81 mg TAB.EC (enteric coated) PO SCH (20:58)
[2023-03-27] MEDS: DOXYcycline 100 MG in NS 0.9% 250 ml 250 ML IVPB SCH ×2 (01:03→12:45)
[2023-03-27 07:23] LABS: ABS Basophils 0.1 10^3/uL (0.0-0.1); ABS Eosinophils 0.8 10^3/uL (0.0-0.5); ABS Lymphocytes 1.7 10^3/uL (1.0-4.8); ABS Monocytes 1.1 10^3/uL (0.0-1.1); ABS Neutrophils 9.8 10^3/uL (1.5-7.6); Eosinophil % 5.9 %; Hematocrit 36.8 % (38-53); Hemoglobin 12.2 g/dL (13.2-16.3); Lymphocyte % 12.9 %; Mean Corpuscular Hemoglobin 28.9 pg (27-33); Mean Corpuscular Hgb Conc 33.2 g/dL (31-36); Mean Corpuscular Volume 86.9 fL (80-97); Mean Platelet Volume 7.1 fL (7.5-11.2); Platelet Count 383 10^3/uL (150-450); Red Blood Count 4.24 10^6/uL (4.06-5.63); Red Cell Distribution Width 12.5 % (12-17); White Blood Count 13.5 10^3/uL (3.6-10.2)
[2023-03-27 07:58] LABS: Calcium 8.8 mg/dL (8.6-10.3); Creatinine, Serum 0.85 mg/dL (0.67-1.17); Magnesium 1.9 mg/dL (1.9-2.7); Phosphorus 3.4 mg/dL (2.5-5.0); Potassium 3.6 mmol/L (3.5-5.0); eGFR CKD-EPI 93.5 (>60)
[2023-03-27] MEDS: SPIRIVA Respimat (tiotropium) 2.5 mcg/inh Inhaler INH SCH (07:59)
[2023-03-27] MEDS: NF:ICOSAPENT ETHYL 1 GM CAPSULE (NF) PO SCH (09:33)
[2023-03-27 10:13] LABS: Urine Appearance Clear; Urine Bilirubin Negative (Negative); Urine Blood Negative (Negative); Urine Color Yellow; Urine Glucose Negative (Negative); Urine Ketones Negative (Negative); Urine Nitrite Negative (Negative); Urine Protein Negative (Negative); Urine Urobilinogen Negative (Negative)
[2023-03-27] MEDS: Enoxaparin 40 MG/0.4 ML SYR SUBCUT SCH (12:52)
[2023-03-27] MEDS: cefTRIAXone 1 gm/50 mL D5W 1 GM/50 ML BAG IV SCH (14:13)
[2023-03-27] MEDS: Aspirin EC 81 mg TAB.EC (enteric coated) PO SCH (21:29)
[2023-03-28] MEDS: DOXYcycline 100 MG in NS 0.9% 250 ml 250 ML IVPB SCH ×2 (01:28→12:55)
[2023-03-28] MEDS: SPIRIVA Respimat (tiotropium) 2.5 mcg/inh Inhaler INH SCH (07:20)
[2023-03-28 07:55] LABS: ABS Basophils 0.1 10^3/uL (0.0-0.1); ABS Lymphocytes 2.2 10^3/uL (1.0-4.8); ABS Monocytes 1.1 10^3/uL (0.0-1.1); Eosinophil % 7.2 %; Hemoglobin 13.4 g/dL (13.2-16.3); Lymphocyte % 16.2 %; Mean Corpuscular Hemoglobin 29.7 pg (27-33); Mean Corpuscular Hgb Conc 34.3 g/dL (31-36); Mean Corpuscular Volume 86.7 fL (80-97); Mean Platelet Volume 7.2 fL (7.5-11.2); Platelet Count 424 10^3/uL (150-450); Red Cell Distribution Width 12.5 % (12-17); White Blood Count 13.3 10^3/uL (3.6-10.2)
[2023-03-28 08:05] LABS: Calcium 9.1 mg/dL (8.6-10.3); Creatinine, Serum 0.89 mg/dL (0.67-1.17); Potassium 4.3 mmol/L (3.5-5.0); eGFR CKD-EPI 92.2 (>60)
[2023-03-28] MEDS: NF:ICOSAPENT ETHYL 1 GM CAPSULE (NF) PO SCH (09:53)
[2023-03-28 10:28] VITALS: BP 139/80
[2023-03-28] MEDS: Enoxaparin 40 MG/0.4 ML SYR SUBCUT SCH (12:54)
[2023-03-28] MEDS ORDERED: cefTRIAXone ADVAN VIAL 1 GM in NS 0.9% 50 ML 50 ML IVPB SCH (14:00)
== END 2023-03-28 15:25 | disposition home or self-care (01) | DRG 871 ==
LOC: ED 10:27 → EDHOLD 12:42 → SUATTDRO 12:42 → MED 13:31
PROVIDERS: ADMIT Hospitalist; ATTEND Student in an Organized Health Care Education/Training Program

== ENCOUNTER 2023-04-05 14:57 | Inpatient (IN) ==
[2023-04-05 16:03] LABS: Hematocrit 39.8 % (38-53); Hemoglobin 13.4 g/dL (13.2-16.3); Mean Corpuscular Hemoglobin 28.9 pg (27-33); Mean Corpuscular Hgb Conc 33.6 g/dL (31-36); Mean Corpuscular Volume 85.9 fL (80-97); Mean Platelet Volume 7.7 fL (7.5-11.2); Platelet Count 473 10^3/uL (150-450); Red Blood Count 4.63 10^6/uL (4.06-5.63); Red Cell Distribution Width 12.9 % (12-17); White Blood Count 20.8 10^3/uL (3.6-10.2)
[2023-04-05 16:10] LABS: INR 1.36 (0.83-1.13)
[2023-04-05 16:25] LABS: Albumin 3.6 g/dL (3.2-5.2); Albumin/Globulin Ratio 0.8 (1-3); C Reactive Protein 178.11 mg/L (<8.01); Calcium 9.5 mg/dL (8.6-10.3); Creatinine, Serum 0.96 mg/dL (0.67-1.17); Globulin 4.3 g/dL (2-4); Potassium 3.4 mmol/L (3.5-5.0); Total Bilirubin 0.6 mg/dL (0.2-1.0); Total Protein 7.9 g/dL (6.4-8.9)
[2023-04-05] MEDS ORDERED: Piperacillin/Tazobac 3.375 BAG 3.375 GM/100 ML BAG IV ONE (16:27)
[2023-04-05] MEDS ORDERED: Vancomycin 1,500 MG in NS 0.9% 250 ml 250 ML IVPB ONE (16:27)
[2023-04-05 16:32] LABS: ABS Basophils 0.5 10^3/uL (0.0-0.1); ABS Eosinophils 0.4 10^3/uL (0.0-0.5); ABS Lymphocytes 1.7 10^3/uL (1.0-4.8); ABS Monocytes 1.7 10^3/uL (0.0-1.1); ABS Neutrophils 16.5 10^3/uL (1.5-7.6); ABS Nucleated RBC 0.01 10^3/ul; Eosinophil % 2.2 %; Lymphocyte % 8.2 %
[2023-04-05] MEDS ORDERED: Potassium EFFERVES 25 meq TAB PO ONE (17:08)
[2023-04-05] MEDS ORDERED: Levalbuterol 1.25MG/0.5ML NEB.SOL INH ONE (17:27)
[2023-04-05 17:43] LABS: Magnesium 2.2 mg/dL (1.9-2.7)
[2023-04-05] MEDS ORDERED: Zosyn per Pharmacy NOTE FOLLOW UP SCH (18:00)
[2023-04-05] MEDS ORDERED: Vancomycin per Pharmacy 1 EA NOTE FOLLOW UP SCH (18:00)
[2023-04-05] MEDS ORDERED: NF:Azelastine 0.1% Nasal (NF) 30 ML BTL BOTH NARES PRN (18:05)
[2023-04-05] MEDS ORDERED: Nitroglycerin 0.3 mg TAB SL PRN (18:05)
[2023-04-05] MEDS ORDERED: Levalbuterol 1.25MG/0.5ML NEB.SOL INH PRN (18:08)
[2023-04-05 18:45] LABS: High Sensitivity Troponin 1 Hr 5 pg/mL (<20)
[2023-04-05] MEDS: NS 0.9% 1000 ml BAG 1,000 ML IV SCH (19:51)
[2023-04-05] MEDS: Enoxaparin 40 MG/0.4 ML SYR SUBCUT SCH (19:51)
[2023-04-05] MEDS: ZOSYN 3.375 GM Q8H per EXTENDED INFUSION IV SCH (20:46)
[2023-04-05] MEDS: Aspirin EC 81 mg TAB.EC (enteric coated) PO SCH (20:51)
[2023-04-05] MEDS: Potassium Chlor 20 meq TAB.ER PO SCH (20:53)
[2023-04-06] MEDS: ZOSYN 3.375 GM Q8H per EXTENDED INFUSION IV SCH ×3 (05:56→20:52)
[2023-04-06] MEDS: Vancomycin 1,250 MG in NS 0.9% 250 ml 250 ML IVPB SCH ×2 (06:35→17:37)
[2023-04-06 07:07] LABS: Hematocrit 35.6 % (38-53); Hemoglobin 11.8 g/dL (13.2-16.3); Mean Corpuscular Hemoglobin 28.8 pg (27-33); Mean Corpuscular Hgb Conc 33.3 g/dL (31-36); Mean Corpuscular Volume 86.6 fL (80-97); Mean Platelet Volume 7.6 fL (7.5-11.2); Platelet Count 377 10^3/uL (150-450); Red Blood Count 4.11 10^6/uL (4.06-5.63); Red Cell Distribution Width 12.7 % (12-17); White Blood Count 13.9 10^3/uL (3.6-10.2)
[2023-04-06] MEDS: Cholecalciferol (VIT D3) 1,000 unit TAB PO SCH (08:29)
[2023-04-06 08:36] LABS: ABS Basophils 0.2 10^3/uL (0.0-0.1); ABS Eosinophils 0.8 10^3/uL (0.0-0.5); ABS Lymphocytes 2.1 10^3/uL (1.0-4.8); ABS Monocytes 1.2 10^3/uL (0.0-1.1); ABS Neutrophils 9.6 10^3/uL (1.5-7.6); ABS Nucleated RBC 0.01 10^3/ul; Eosinophil % 5.8 %; Nucleated Red Blood Cells % 0.1 %/100WBC (0.0-0.8); RBC Morphology Normal (Normal)
[2023-04-06] MEDS: NF:ICOSAPENT ETHYL 1 GM CAPSULE (NF) PO SCH (08:48)
[2023-04-06 09:01] LABS: Calcium 8.6 mg/dL (8.6-10.3); Creatinine, Serum 0.85 mg/dL (0.67-1.17); Magnesium 2.1 mg/dL (1.9-2.7); Potassium 3.7 mmol/L (3.5-5.0); eGFR CKD-EPI 93.5 (>60)
[2023-04-06] MEDS ORDERED: Potassium Chlor 10 meq TAB PO ONE (10:20)
[2023-04-06] MEDS: NS 0.9% 1000 ml BAG 1,000 ML IV SCH (13:42)
[2023-04-06] MEDS: methylPREDNISolone SOD SUCC 40 mg/ml 1 ml VIAL IV SCH (15:07)
[2023-04-06] MEDS: Enoxaparin 40 MG/0.4 ML SYR SUBCUT SCH (17:37)
[2023-04-06] MEDS: Mometasone/Formoter 200/5 MDI INH SCH ×2 (18:06→19:19)
[2023-04-06] MEDS: Aspirin EC 81 mg TAB.EC (enteric coated) PO SCH (20:54)
[2023-04-06] MEDS: Potassium Chlor 20 meq TAB.ER PO SCH (20:54)
[2023-04-07] MEDS: ZOSYN 3.375 GM Q8H per EXTENDED INFUSION IV SCH ×3 (05:03→21:38)
[2023-04-07] MEDS ORDERED: Vancomycin Trough Check NOTE FOLLOW UP ONE (06:00)
[2023-04-07 06:53] LABS: Creatinine, Serum 0.74 mg/dL (0.67-1.17); Vancomycin Trough 7.5 mcg/mL; eGFR CKD-EPI 97.5 (>60)
[2023-04-07] MEDS: Vancomycin 1,250 MG in NS 0.9% 250 ml 250 ML IVPB SCH ×2 (08:24→17:58)
[2023-04-07] MEDS: methylPREDNISolone SOD SUCC 40 mg/ml 1 ml VIAL IV SCH (08:26)
[2023-04-07] MEDS: NF:ICOSAPENT ETHYL 1 GM CAPSULE (NF) PO SCH (08:28)
[2023-04-07] MEDS: Cholecalciferol (VIT D3) 1,000 unit TAB PO SCH (08:28)
[2023-04-07 08:37] LABS: Hematocrit 34.3 % (38-53); Hemoglobin 11.4 g/dL (13.2-16.3); Mean Corpuscular Hemoglobin 28.7 pg (27-33); Mean Corpuscular Hgb Conc 33.3 g/dL (31-36); Mean Corpuscular Volume 86.1 fL (80-97); Platelet Count 396 10^3/uL (150-450); Red Blood Count 3.98 10^6/uL (4.06-5.63); Red Cell Distribution Width 12.5 % (12-17); White Blood Count 13.1 10^3/uL (3.6-10.2)
[2023-04-07] MEDS ORDERED: SPIRIVA Respimat (tiotropium) 2.5 mcg/inh Inhaler INH SCH (09:00)
[2023-04-07] MEDS: Mometasone/Formoter 200/5 MDI INH SCH ×2 (09:12→20:11)
[2023-04-07 10:29] LABS: ABS Basophils 0.1 10^3/uL (0.0-0.1); ABS Eosinophils 0.2 10^3/uL (0.0-0.5); ABS Lymphocytes 1.5 10^3/uL (1.0-4.8); ABS Monocytes 0.8 10^3/uL (0.0-1.1); ABS Neutrophils 10.5 10^3/uL (1.5-7.6); Eosinophil % 1.2 %; Lymphocyte % 11.8 %
[2023-04-07 16:27] LABS: JO-1 Antibody <0.2 U; SS-A/Ro Antibody <0.2 U; SS-B/La Antibody <0.2 U; Sm (Smith) IgG Antibody <0.2 U
[2023-04-07] MEDS: Enoxaparin 40 MG/0.4 ML SYR SUBCUT SCH (18:07)
[2023-04-07] MEDS: Aspirin EC 81 mg TAB.EC (enteric coated) PO SCH (21:36)
[2023-04-07] MEDS: Potassium Chlor 20 meq TAB.ER PO SCH (21:36)
[2023-04-08] MEDS: ZOSYN 3.375 GM Q8H per EXTENDED INFUSION IV SCH ×3 (05:01→20:37)
[2023-04-08] MEDS: NS 0.9% 1000 ml BAG 1,000 ML IV SCH (06:04)
[2023-04-08] MEDS: Vancomycin 1,250 MG in NS 0.9% 250 ml 250 ML IVPB SCH ×2 (07:12→17:42)
[2023-04-08] MEDS ORDERED: ALIROCUMAB 75 MG/ML SUBCUT SCH (07:45)
[2023-04-08 08:02] LABS: ABS Basophils 0.1 10^3/uL (0.0-0.1); ABS Eosinophils 0.5 10^3/uL (0.0-0.5); ABS Lymphocytes 2.3 10^3/uL (1.0-4.8); ABS Monocytes 0.8 10^3/uL (0.0-1.1); ABS Neutrophils 8.2 10^3/uL (1.5-7.6); ABS Nucleated RBC 0.01 10^3/ul; Eosinophil % 4.1 %; Hematocrit 34.7 % (38-53); Hemoglobin 11.6 g/dL (13.2-16.3); Lymphocyte % 19.1 %; Mean Corpuscular Hemoglobin 28.7 pg (27-33); Mean Corpuscular Hgb Conc 33.5 g/dL (31-36); Mean Corpuscular Volume 85.6 fL (80-97); Mean Platelet Volume 7.5 fL (7.5-11.2); Nucleated Red Blood Cells % 0.1 %/100WBC (0.0-0.8); Platelet Count 394 10^3/uL (150-450); Red Blood Count 4.06 10^6/uL (4.06-5.63); White Blood Count 11.8 10^3/uL (3.6-10.2)
[2023-04-08] MEDS: Mometasone/Formoter 200/5 MDI INH SCH ×2 (08:26→18:51)
[2023-04-08] MEDS: methylPREDNISolone SOD SUCC 40 mg/ml 1 ml VIAL IV SCH (08:55)
[2023-04-08] MEDS: NF:ICOSAPENT ETHYL 1 GM CAPSULE (NF) PO SCH (08:56)
[2023-04-08] MEDS: Cholecalciferol (VIT D3) 1,000 unit TAB PO SCH (08:56)
[2023-04-08] MEDS ORDERED: ALIROCUMAB 150 MG/ML SUBCUT SCH (09:00)
[2023-04-08 14:24] LABS: Cyclic Citrullinated Pept IgG <15.6 U
[2023-04-08] MEDS: Enoxaparin 40 MG/0.4 ML SYR SUBCUT SCH (18:03)
[2023-04-08] MEDS: Aspirin EC 81 mg TAB.EC (enteric coated) PO SCH (20:35)
[2023-04-08] MEDS: Potassium Chlor 20 meq TAB.ER PO SCH (20:36)
[2023-04-09] MEDS: NS 0.9% 1000 ml BAG 1,000 ML IV SCH (02:11)
[2023-04-09] MEDS: Vancomycin 1,250 MG in NS 0.9% 250 ml 250 ML IVPB SCH (05:19)
[2023-04-09] MEDS: Mometasone/Formoter 200/5 MDI INH SCH ×2 (07:24→19:56)
[2023-04-09 07:42] LABS: Hematocrit 35.2 % (38-53); Hemoglobin 11.9 g/dL (13.2-16.3); Mean Corpuscular Hemoglobin 28.9 pg (27-33); Mean Corpuscular Hgb Conc 33.8 g/dL (31-36); Mean Corpuscular Volume 85.6 fL (80-97); Mean Platelet Volume 7.5 fL (7.5-11.2); Platelet Count 406 10^3/uL (150-450); Red Blood Count 4.12 10^6/uL (4.06-5.63); Red Cell Distribution Width 12.8 % (12-17); White Blood Count 12.7 10^3/uL (3.6-10.2)
[2023-04-09] MEDS: methylPREDNISolone SOD SUCC 40 mg/ml 1 ml VIAL IV SCH (07:54)
[2023-04-09] MEDS: Cholecalciferol (VIT D3) 1,000 unit TAB PO SCH (07:54)
[2023-04-09] MEDS: NF:ICOSAPENT ETHYL 1 GM CAPSULE (NF) PO SCH (07:56)
[2023-04-09 08:00] LABS: C Reactive Protein 21.07 mg/L (<8.01); Calcium 8.6 mg/dL (8.6-10.3); Creatinine, Serum 0.8 mg/dL (0.67-1.17); Potassium 3.5 mmol/L (3.5-5.0); eGFR CKD-EPI 95.2 (>60)
[2023-04-09] MEDS ORDERED: ZOSYN 3.375 GM Q8H per EXTENDED INFUSION IV SCH (08:00)
[2023-04-09 09:00] LABS: ABS Basophils 0.1 10^3/uL (0.0-0.1); ABS Eosinophils 0.3 10^3/uL (0.0-0.5); ABS Lymphocytes 2.6 10^3/uL (1.0-4.8); ABS Monocytes 0.9 10^3/uL (0.0-1.1); ABS Neutrophils 8.9 10^3/uL (1.5-7.6); ABS Nucleated RBC 0.03 10^3/ul; Eosinophil % 2.3 %; Lymphocyte % 20.2 %; Nucleated Red Blood Cells % 0.2 %/100WBC (0.0-0.8)
[2023-04-09] MEDS: Enoxaparin 40 MG/0.4 ML SYR SUBCUT SCH (18:07)
[2023-04-09] MEDS: Aspirin EC 81 mg TAB.EC (enteric coated) PO SCH (20:36)
[2023-04-09] MEDS: Potassium Chlor 20 meq TAB.ER PO SCH (20:37)
[2023-04-10] MEDS ORDERED: Vancomycin Trough Check NOTE FOLLOW UP ONE (05:30)
[2023-04-10 06:16] LABS: Hematocrit 36.9 % (38-53); Hemoglobin 12.5 g/dL (13.2-16.3); Mean Corpuscular Hemoglobin 29.1 pg (27-33); Mean Corpuscular Volume 85.6 fL (80-97); Mean Platelet Volume 7.3 fL (7.5-11.2); Platelet Count 413 10^3/uL (150-450); Red Cell Distribution Width 12.8 % (12-17); White Blood Count 12.8 10^3/uL (3.6-10.2)
[2023-04-10 06:35] LABS: Calcium 9.1 mg/dL (8.6-10.3); Creatinine, Serum 0.88 mg/dL (0.67-1.17); Magnesium 2.1 mg/dL (1.9-2.7); Phosphorus 3.7 mg/dL (2.5-5.0); Potassium 3.7 mmol/L (3.5-5.0); eGFR CKD-EPI 92.5 (>60)
[2023-04-10 06:53] LABS: ABS Basophils 0.1 10^3/uL (0.0-0.1); ABS Eosinophils 0.4 10^3/uL (0.0-0.5); ABS Lymphocytes 2.8 10^3/uL (1.0-4.8); ABS Monocytes 0.9 10^3/uL (0.0-1.1); ABS Neutrophils 8.6 10^3/uL (1.5-7.6); ABS Nucleated RBC 0.01 10^3/ul; Eosinophil % 2.8 %; Lymphocyte % 21.6 %; Nucleated Red Blood Cells % 0.1 %/100WBC (0.0-0.8)
[2023-04-10] MEDS: Mometasone/Formoter 200/5 MDI INH SCH (08:02)
[2023-04-10] MEDS: methylPREDNISolone SOD SUCC 40 mg/ml 1 ml VIAL IV SCH (09:09)
[2023-04-10] MEDS: Cholecalciferol (VIT D3) 1,000 unit TAB PO SCH (09:10)
[2023-04-10 10:24] VITALS: BP 145/85
[2023-04-10] MEDS: NF:ICOSAPENT ETHYL 1 GM CAPSULE (NF) PO SCH (10:49)
[2023-04-10 14:47] LABS: TB1 Ag minus Nil Result -0.02 IU/mL
[2023-04-10 14:54] LABS: QuantiferonTb Gold Plus Result Negative (Negative)
== END 2023-04-10 11:40 | disposition home or self-care (01) | DRG 196 ==
LOC: ED 14:57 → EDHOLD 17:30 → SUATTDRO 17:30 → MEDTELE 21:46 → MED 04-06 19:51
PROVIDERS: ADMIT Internal Medicine; ATTEND Internal Medicine